=== PATIENT | female | born 1980 | race Caucasian/White ===

== ENCOUNTER 2016-07-24 10:10 | Emergency (ER) | payer MEDICAID, OTHER ==
[2016-07-24] MEDS ORDERED: KETOROLAC 60 MG/2 ML VIAL IM ONE (11:55)
[2016-07-24] MEDS ORDERED: ORPHENADRINE 60 MG/2 ML AMP ONE (11:55)
== END 2016-07-24 12:59 | disposition home or self-care (01) ==
LOC: FASTR 10:10
DX: S16.1XXA Strain of muscle, fascia and tendon at neck level, initial encounter (principal); G89.11 Acute pain due to trauma; M54.6 Pain in thoracic spine; R51 Headache; R42 Dizziness and giddiness; V89.2XXA Person injured in unspecified motor-vehicle accident, traffic, initial encounter
CPT/HCPCS: 70450; 72050; 72072; 96372